=== PATIENT | male | born 1960 ===

== ENCOUNTER 2018-05-06 15:38 | Outpatient (CLI) | payer OTHER ==
[~2018-05-06] VITALS: Ht 172.7 cm; Wt 94.3 kg
== END 2018-05-06 16:00 | disposition home or self-care (01) ==
LOC: OFIC 805 15:38
DX: R49.0 Dysphonia (principal); R05 Cough; K21.0 Gastro-esophageal reflux disease with esophagitis; H90.41 Sensorineural hearing loss, unilateral, right ear, with unrestricted hearing on the contralateral side

== ENCOUNTER 2018-10-17 10:00 | Outpatient (CLI) | payer OTHER ==
[~2018-10-17] VITALS: Ht 152.4 cm; Wt 90.7 kg
== END 2018-10-17 16:30 | disposition home or self-care (01) ==
LOC: OFIC 805 10:00
DX: H90.41 Sensorineural hearing loss, unilateral, right ear, with unrestricted hearing on the contralateral side (principal); K21.0 Gastro-esophageal reflux disease with esophagitis; H60.8X1 Other otitis externa, right ear; H61.21 Impacted cerumen, right ear

== ENCOUNTER 2020-01-20 06:35 | Day surgery (SDC) | payer OTHER ==
[~2020-01-20] VITALS: Ht 15.2 cm; Wt 5.0 kg
[~2020-01-20 06:35] MED LIST: CANDESARTAN CILE8 MG PO; CRESTOR40 MG PO
== END 2020-01-20 12:00 | disposition home or self-care (01) ==
LOC: CIR.AMB 06:35
PROVIDERS: ATTEND Surgery
DX: C61 Malignant neoplasm of prostate (principal); Z20.828 Contact with and (suspected) exposure to other viral communicable diseases
CPT/HCPCS: 36561; C1751